=== PATIENT | female | born 2000 | race Caucasian/White ===

== ENCOUNTER 2021-01-19 20:29 | Emergency (ER) | payer OTHER ==
[~2021-01-19 20:29] MED LIST: CLARITIN 10MG T10 MG PO; PRENATAL VITAM1 EAC5 PO
[2021-01-19 21:40] LABS: RED BLOOD COUNT 4.59 M/UL (4.00-5.10); WHITE BLOOD COUNT 5.5 K/UL (4.5-11.0)
[2021-01-19 22:01] LABS: BUN/CREATININE RATIO 20 (0-10)
[2021-01-19] MEDS ORDERED: ZOFRAN ODT 4 MG4 MG PO ×2 (22:29→22:38)
== END 2021-01-19 22:34 | disposition home or self-care (01) ==
LOC: ER1 20:29
PROVIDERS: Family Medicine
DX: B34.9 Viral infection, unspecified (principal); I10 Essential (primary) hypertension; Z20.822 Contact with and (suspected) exposure to COVID-19; Z79.899 Other long term (current) drug therapy
CPT/HCPCS: 0240U; 71045; 80053; 81001; 83605; 85025; 96374; 99284; J2405

== ENCOUNTER → 2021-02-26 | Outpatient (CLI) | payer OTHER ==
[~2021-02-26] MED LIST changes: +ZOFRAN ODT 4 MG4 MG PO
== END ==
LOC: DTC 12:51
DX: E66.01 Morbid (severe) obesity due to excess calories (principal); G60.0 Hereditary motor and sensory neuropathy; Z91.81 History of falling; Z68.42 Body mass index [BMI] 45.0-49.9, adult

== ENCOUNTER 2021-07-23 15:54 | Emergency (ER) | payer OTHER ==
[2021-07-23 17:01] LABS: HEMOGLOBIN 12.9 gm/dl (12.3-15.3); RED BLOOD COUNT 4.69 M/UL (4.00-5.10); WHITE BLOOD COUNT 8.3 K/UL (4.5-11.0)
[2021-07-23 17:30] LABS: BUN/CREATININE RATIO 15 (0-10)
[2021-07-23] MEDS ORDERED: KLOR-CON M1010 MEQ PO (23:30)
== END 2021-07-24 01:00 | disposition home or self-care (01) ==
LOC: ER1 15:54
PROVIDERS: Nurse Practitioner
DX: U07.1 COVID-19 (principal); E87.6 Hypokalemia; I10 Essential (primary) hypertension; J45.909 Unspecified asthma, uncomplicated
CPT/HCPCS: 71045; 80053; 81001; 82550; 82553; 83874; 84484; 84703; 85025; 85379; 93005; 96365; 96375; 99284; J2405; J3475; J7070; U0002

== ENCOUNTER 2021-12-08 13:56 | Emergency (ER) | payer OTHER ==
[~2021-12-08 13:56] MED LIST changes: +KLOR-CON M1010 MEQ PO
[2021-12-08 16:29] LABS: BUN/CREATININE RATIO 21 (0-10)
[2021-12-08 16:36] LABS: HEMOGLOBIN 12.4 gm/dl (12.3-15.3); RED BLOOD COUNT 4.5 M/UL (4.00-5.10)
[2021-12-08] MEDS ORDERED: DIFLUCAN150 MG PO (23:45)
[2021-12-08] MEDS ORDERED: OMNICEF 300 MG300 MG PO (23:45)
== END 2021-12-08 23:50 | disposition home or self-care (01) ==
LOC: ER1 13:56
PROVIDERS: Physician Assistant
DX: R07.89 Other chest pain (principal); I10 Essential (primary) hypertension; N39.0 Urinary tract infection, site not specified; R06.00 Dyspnea, unspecified; Z20.822 Contact with and (suspected) exposure to COVID-19
CPT/HCPCS: 71045; 80053; 81001; 84439; 84443; 84484; 84703; 85025; 87081; 87880; 93005; 96374; 99285; J2405; Q9967; U0002

== ENCOUNTER 2022-02-04 15:34 | Emergency (ER) | payer OTHER ==
[~2022-02-04 15:34] MED LIST changes: +DIFLUCAN150 MG PO; +OMNICEF 300 MG300 MG PO
[2022-02-04 16:04] LABS: HEMOGLOBIN 12.5 gm/dl (12.3-15.3); RED BLOOD COUNT 4.56 M/UL (4.00-5.10)
[2022-02-04 16:57] LABS: BUN/CREATININE RATIO 21 (0-10)
== END 2022-02-04 20:26 | disposition home or self-care (01) ==
LOC: ER1 15:34
PROVIDERS: Physician Assistant
DX: R07.89 Other chest pain (principal); I10 Essential (primary) hypertension; F41.9 Anxiety disorder, unspecified; F32.9 Major depressive disorder, single episode, unspecified
CPT/HCPCS: 71045; 80053; 81001; 82550; 82553; 84484; 84703; 85025; 85379; 93005; 99285

== ENCOUNTER → 2022-03-24 | Outpatient (CLI) | payer OTHER | LOC: HEART 5 03-19 14:00 | DX: R07.9 Chest pain, unspecified (principal); R00.2 Palpitations; R00.0 Tachycardia, unspecified; I07.1 Rheumatic tricuspid insufficiency | CPT/HCPCS: 93306 ==

== ENCOUNTER → 2022-05-27 | Outpatient (CLI) | payer OTHER ==
[2022-05-28 16:12] LABS: ENDOMYSIAL ANTIBODY IGA Negative (Negative); IMMUNOGLOBULIN A, QN, SERUM 111 mg/dL (87-352); T-TRANSGLUTAMINASE (TTG) IGA <2 U/mL (0-3)
== END ==
LOC: LAB 11:03
PROVIDERS: Internal Medicine Gastroenterology
DX: R19.7 Diarrhea, unspecified (principal)
CPT/HCPCS: 36415; 82784